=== PATIENT | male | born 1960 | race Caucasian/White ===

== ENCOUNTER 2022-05-19 23:35 | Emergency (ER) | payer MEDICAID ==
[~2022-05-19] VITALS: Ht 167.6 cm; Wt 76.7 kg
[2022-05-19 23:38] VITALS: BP 170/104
--- NOTE | 2022-05-19 23:42 | NUR ---
PT NORM BLS. TAKEN TO BED 7
--- NOTE | 2022-05-20 00:01 | NUR ---
Dr. Tavarez examining patient.
[2022-05-20] MEDS ORDERED: HYDROcodone/APAP 10/325 MG 1 TAB TAB PO ONE (00:10)
--- NOTE | 2022-05-20 00:17 | NUR ---
[place] at bedside.
--- NOTE | 2022-05-20 00:26 | NUR ---
PT TO CT SCAN
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
--- NOTE | 2022-05-20 00:41 | NUR ---
PT RETURN FROM CT
--- NOTE | 2022-05-20 01:20 | NUR ---
PT RESTING WITH HOB ELEVATED. RESP EVEN AND UNLABORED. PAIN LEVEL 7/10. BED AT LOWEST POSITION
[2022-05-20 02:52] VITALS: BP 147/98
--- NOTE | 2022-05-20 02:52 | NUR ---
The patient's care was reviewed and supervised by Nancy Meade RN.
--- NOTE | 2022-05-20 02:52 | NUR ---
Patient discharged with v/s stable. Written and verbal after care instructions given and explained. Patient verbalized understanding. Ambulatory with steady gait. All questions addressed prior to discharge. Advised to follow up with PMD.
== END 2022-05-20 02:52 | disposition home or self-care (01) ==
LOC: MED 23:35
DX: S09.90XA Unspecified injury of head, initial encounter (principal); V89.2XXA Person injured in unspecified motor-vehicle accident, traffic, initial encounter; Y93.89 Activity, other specified; Y92.89 Other specified places as the place of occurrence of the external cause; Y99.8 Other external cause status
CPT/HCPCS: 70450; 70486; 72125; 99285